=== PATIENT | female | born 1955 | race Caucasian/White ===

== ENCOUNTER 2024-09-23 10:50 | Outpatient (CLI) | payer MEDICARE, MEDICAID | END 2024-09-23 23:59 | disposition home or self-care (01) | LOC: RAD 10:50 | PROVIDERS: ATTEND Physician Assistant | DX: M19.042 Primary osteoarthritis, left hand (principal); R22.32 Localized swelling, mass and lump, left upper limb | CPT/HCPCS: 73200 ==